=== PATIENT | female | born 1975 | race Caucasian/White ===

== ENCOUNTER → 2021-10-06 | Outpatient (CLI) | payer BC ==
[~2021-10-06] MED LIST: CLARITIN10 MG PO; FORT1000TA PO; GLUCOTROL10 MG PO; METFORMIN500 MG PO; NO HOME MEDICATIONS; PERCOCET 5/321 UDTAB PO; PHENERGAN25 MG RC; PORTIA-28 30 MC1 TAB PO; PRINIVIL20 MG PO
== END ==
LOC: COL.RAD 09:22
DX: S79.811A Other specified injuries of right hip, initial encounter (principal); X58.XXXA Exposure to other specified factors, initial encounter
CPT/HCPCS: A9585; Q9967

== ENCOUNTER 2022-08-05 09:49 | Emergency (ER) | payer BC ==
[~2022-08-05] VITALS: Ht 167.6 cm; Wt 86.4 kg
[2022-08-05 10:04] VITALS: BP 130/88; TEMP 98.5
[2022-08-05] MEDS ORDERED: VALTREX1 GM PO (10:45)
[2022-08-05] MEDS ORDERED: PREDNISONE20 MG PO (10:45)
[2022-08-05 10:50] LABS: BASO % 0.4 % (0.0-2.0); EOS # 0.2 K/mm3 (0.0-0.7); EOS % 2.6 % (0.0-4.0); GRAN # 4.9 K/mm3 (1.4-6.5); GRAN % 66.6 % (42.2-75.2); HEMOGLOBIN 12.7 g/dl (12.5-16.0); LYMPH # 1.7 K/mm3 (1.2-3.4); LYMPH % 22.8 % (20.0-51.0); MEAN CELL VOLUME 85 fl (80.0-100.0); MEAN CORPUSCULAR HEMOGLOBIN 30 pg (27-31); MEAN CORPUSCULAR HGB CONC 35 g/dl (33.0-37.0); MEAN PLATELET VOLUME 10.5 fl (7.4-10.4); MONO # 0.5 K/mm3 (0.1-0.6); MONO % 7.3 % (1.7-9.3); PLATELET COUNT 266 K/mm3 (130-400); RED BLOOD COUNT 4.21 M/mm3 (4.10-5.30); REDCELL DISTRIBUTION WIDTH-CV 13.1 % (11.5-14.5)
[2022-08-05 10:59] LABS: HEMATOCRIT 35.9 % (37.0-47.0)
[2022-08-05 11:09] LABS: ALBUMIN 3.8 gm/dL (3.5-5.0); BILIRUBIN,TOTAL 0.4 mg/dL (0.2-1.2); C-REACTIVE PROTEIN 1.35 mg/dL (0.00-0.50); CALCIUM 9.6 mg/dL (8.4-10.2); CREATININE, serum 0.98 mg/dL (0.57-1.11); POTASSIUM 3.5 mmol/L (3.5-4.5); TOTAL PROTEIN 8.6 gm/dL (6.2-8.1)
[2022-08-05 11:49] VITALS: PULSE 93
== END 2022-08-05 11:51 | disposition home or self-care (01) ==
LOC: COL.ER 09:49
PROVIDERS: Nurse Practitioner
DX: G51.0 Bell's palsy (principal)

== ENCOUNTER 2024-01-09 10:45 | Day surgery (SDC) | payer BC ==
[~2024-01-09] VITALS: Ht 167.6 cm; Wt 80.9 kg
[~2024-01-09 10:45] MED LIST changes: +LR 1,000 ML IV ONE; +Ondansetron 4 MG/2 ML VIAL IV PRN; +PREDNISONE20 MG PO; +VALTREX1 GM PO
[2024-01-09] MEDS ORDERED: Lidocaine PF 2% (20 MG/ML) 5 ML VIAL ONE (12:04)
[2024-01-09] MEDS ORDERED: PRINZIDE 12.5 M1 TAB PO (12:06)
[2024-01-09] MEDS ORDERED: NOVOLOG FLEX100 U/ML SQ (12:08)
[2024-01-09] MEDS ORDERED: JARDIANCE25 PO (12:08)
[2024-01-09] MEDS ORDERED: OZEMPIC2 MG/0.75 SQ (12:09)
[2024-01-09] MEDS ORDERED: LIPITOR20 MG PO (12:09)
[2024-01-09] MEDS ORDERED: DITROPAN 5MG TAB5 MG PO (12:10)
[2024-01-09] MEDS ORDERED: LANTUS100 U/ML SQ (12:13)
[2024-01-09] MEDS ORDERED: AMITRIPTYLINE H75 M1 PO (12:14)
[2024-01-09] MEDS ORDERED: GLUCOPHAGE1000 MG PO (12:15)
[2024-01-09 12:50] VITALS: BP 104/78; PULSE 76; TEMP 97.1
[2024-01-09 13:05] VITALS: BP 103/87; PULSE 72
[2024-01-09 13:20] VITALS: BP 108/80; PULSE 78
--- NOTE | 2024-01-09 13:25 | NUR ---
1250 RETURNS TO [facility] 6 PER CART. AWAKE, ALERT. RESP UNLABORED. AMBULATES TO RECLINER WITH STANDBY ASSIST. DENIES NAUSEA OR ABD PAIN. VITAL SIGNS OBTAINED 1305 DR MCGEE HERE TO VISIT WITH PATIENT 1315 [address] PO JUICE AND MUFFIN WITH NAUSEA. DISCHARGE INSTRUCTIONS REVIEWED. PATIENT VERBALIZES UNDERSTANDING. COPY PROVIDED IN DISCHARGE FOLDER
== END 2024-01-09 13:25 | disposition home or self-care (01) ==
LOC: SDCO 10:45
DX: Z12.11 Encounter for screening for malignant neoplasm of colon (principal); D12.5 Benign neoplasm of sigmoid colon; K57.30 Diverticulosis of large intestine without perforation or abscess without bleeding
CPT/HCPCS: J2704; J7120

== ENCOUNTER → 2024-01-23 | Outpatient (CLI) | payer BC ==
[~2024-01-23] MED LIST changes: +AMITRIPTYLINE H75 M1 PO; +DITROPAN 5MG TAB5 MG PO; +GLUCOPHAGE1000 MG PO; +JARDIANCE25 PO; +LANTUS100 U/ML SQ; +LIPITOR20 MG PO; -LR 1,000 ML IV ONE; +NOVOLOG FLEX100 U/ML SQ; +OZEMPIC2 MG/0.75 SQ; -Ondansetron 4 MG/2 ML VIAL IV PRN; +PRINZIDE 12.5 M1 TAB PO
== END ==
LOC: MC.RAD 13:36
DX: Z12.31 Encounter for screening mammogram for malignant neoplasm of breast (principal); N64.89 Other specified disorders of breast